=== PATIENT | male | born 1940 | race Hispanic/Latino ===

== ENCOUNTER → 2017-07-23 | Outpatient (CLI) | payer MEDICARE ==
[~2017-07-23] MED LIST: AMLO5TAB2 PO; DOXY100C2 PO; GLIP5TAB11 PO; INSLAN SQ; ROSU40TA28 PO
== END | disposition home or self-care (01) ==
LOC: SHCH 08:22
PROVIDERS: ATTEND Internal Medicine Cardiovascular Disease
DX: I10 Essential (primary) hypertension (principal); Z95.0 Presence of cardiac pacemaker
CPT/HCPCS: 93306

== ENCOUNTER → 2019-10-16 | Outpatient (CLI) | payer MEDICARE ==
[~2019-10-16] MED LIST changes: -AMLO5TAB2 PO; +AMLO5TAB9 PO; +ROSU40TA21 PO; -ROSU40TA28 PO
== END | disposition home or self-care (01) ==
LOC: SHCH 10:40
PROVIDERS: ATTEND Internal Medicine Cardiovascular Disease
DX: I51.7 Cardiomegaly (principal); R01.1 Cardiac murmur, unspecified; I73.9 Peripheral vascular disease, unspecified
CPT/HCPCS: 93306; 93356; 93925

== ENCOUNTER → 2019-11-04 | Outpatient (CLI) | payer MEDICARE | END | disposition home or self-care (01) | LOC: SHCH 09:57 | PROVIDERS: ATTEND Internal Medicine Cardiovascular Disease | DX: R09.89 Other specified symptoms and signs involving the circulatory and respiratory systems (principal) | CPT/HCPCS: 93880 ==

== ENCOUNTER 2022-04-18 12:11 | Emergency (ER) | payer MEDICARE ==
[~2022-04-18] VITALS: Ht 167.6 cm; Wt 67.6 kg
[~2022-04-18 12:11] MED LIST changes: +AEC81 PO; -AMLO5TAB9 PO; +CEFD300C3 PO; +DILT120C92 PO; -DOXY100C2 PO; +FOLIC ACID PO; -GLIP5TAB11 PO; -INSLAN SQ; +INSU100V37 SQ; +LINA5TAB PO; +LOSA25TA41 PO; +REPA1TAB5 PO; -ROSU40TA21 PO; +VITAMIN B12 PO
[2022-04-18] MEDS ORDERED: ACETAMINOPHEN 500 MG TABLET ONE (15:46)
[2022-04-18] MEDS ORDERED: ACETAMINOPHEN 500 MG TABLET PO ONE (16:00)
[2022-04-18 16:39] VITALS: BP 167/73
== END 2022-04-18 16:39 | disposition home or self-care (01) ==
LOC: EDH 12:11
DX: T82.838A Hemorrhage due to vascular prosthetic devices, implants and grafts, initial encounter (principal); E78.00 Pure hypercholesterolemia, unspecified; E11.22 Type 2 diabetes mellitus with diabetic chronic kidney disease; I12.9 Hypertensive chronic kidney disease with stage 1 through stage 4 chronic kidney disease, or unspecified chronic kidney disease; N18.9 Chronic kidney disease, unspecified; Z79.4 Long term (current) use of insulin; Z98.890 Other specified postprocedural states; Z88.0 Allergy status to penicillin; Z79.82 Long term (current) use of aspirin; Z79.899 Other long term (current) drug therapy

== ENCOUNTER → 2022-07-13 | Outpatient (CLI) | payer MEDICARE ==
[~2022-07-13] VITALS: Ht 162.6 cm; Wt 65.8 kg
[2022-07-13 11:00] LABS: HEMATOCRIT 35.7 % (42-54); MEAN CORPUSCULAR HEMOGLOBIN 31.4 pg (27.0-33.0); MEAN CORPUSCULAR HGB CONC 31.7 g/dL (32.0-36.0); MEAN CORPUSCULAR VOLUME 99.2 fL (79-99); PLATELET COUNT (AUTO) 201 K/uL (130-400); RED CELL DISTRIBUTION WIDTH 20.2 % (11.0-15.5); WHITE BLOOD COUNT (AUTO) 7.5 K/uL (4.8-10.8)
[2022-07-13 11:14] LABS: POTASSIUM 4.2 mmol/L (3.5-5.1)
[2022-07-13 11:21] VITALS: BP 139/57
[2022-07-13 11:29] LABS: INR 1.01 (0.85-1.15)
[2022-07-13 11:30] LABS: PARTIAL THROMBOPLASTIN TIME 29.8 SEC (26.3-35.5)
== END | disposition home or self-care (01) ==
LOC: DAH 10:00 → EDSTATUS 07-16 12:15
PROVIDERS: ATTEND Thoracic Surgery (Cardiothoracic Vascular Surgery)
DX: Z01.818 Encounter for other preprocedural examination (principal); N18.6 End stage renal disease; U07.1 COVID-19; Z79.01 Long term (current) use of anticoagulants; Z88.0 Allergy status to penicillin
CPT/HCPCS: 71045; 87426; 80048; 85027; 85610; 85730; 86850; 86900; 86901; 36415; 93005; A6260

== ENCOUNTER 2022-07-30 07:00 | Day surgery (SDC) | payer MEDICARE ==
[2022-07-27 09:37] LABS: MEAN CORPUSCULAR HGB CONC 30.2 g/dL (32.0-36.0); MEAN CORPUSCULAR VOLUME 102.5 fL (79-99); PLATELET COUNT (AUTO) 170 K/uL (130-400); RED CELL DISTRIBUTION WIDTH 19.1 % (11.0-15.5); WHITE BLOOD COUNT (AUTO) 7.5 K/uL (4.8-10.8)
[2022-07-27 09:50] LABS: INR 1.04 (0.85-1.15); PROTHROMBIN TIME 11.3 SEC (9.6-11.6)
[2022-07-27 09:51] LABS: PARTIAL THROMBOPLASTIN TIME 31.1 SEC (26.3-35.5)
[2022-07-27 09:52] LABS: CREATININE 6.4 mg/dL (0.5-1.5); POTASSIUM 4.4 mmol/L (3.5-5.1)
[2022-07-27 10:33] VITALS: BP 154/68
[~2022-07-30] VITALS: Ht 167.6 cm; Wt 66.7 kg
[2022-07-30] VITALS (17 sets, daily range): BP systolic 165–189; BP diastolic 70–90
[~2022-07-30 07:00] MED LIST changes: -AEC81 PO; -CEFD300C3 PO; +CHOL2000 PO; -REPA1TAB5 PO; +ROSU20TA31 PO
[2022-07-30] MEDS ORDERED: 0.9% NACL 500ML IV.SOLN 500 ML IV ONE (07:56)
[2022-07-30] MEDS ORDERED: PROPOFOL 10 MG/ML 20ML VIAL IV ONE (08:45)
[2022-07-30] MEDS ORDERED: LIDOCAINE PF 100MG/5ML (2%) SYRINGE 5ML ONE (08:45)
[2022-07-30] MEDS ORDERED: SUCCINYLCHOLINE CHLORIDE 20 MG/ML 10 ML VIAL ONE (08:45)
[2022-07-30] MEDS ORDERED: DEXAMETHASONE SOD PHOSPHATE 10MG/ML 1ML VIAL ONE (08:45)
[2022-07-30] MEDS ORDERED: FENTANYL CITRATE PF 50 MCG/1 ML 2ML VIAL ONE (08:46)
[2022-07-30] MEDS ORDERED: NEOSTIGMINE 5MG/5ML SYR IV ONE (08:46)
[2022-07-30] MEDS ORDERED: ONDANSETRON 4MG INJ ONE (08:46)
[2022-07-30] MEDS ORDERED: ROCURONIUM 10MG/1ML SYR 10 MG/ML ML ONE (08:46)
[2022-07-30] MEDS ORDERED: MIDAZOLAM HCL 1 MG/ML 2ML VIAL ONE (08:46)
[2022-07-30 09:08] LABS: CREATININE 7.3 mg/dL (0.5-1.5); POTASSIUM 4.4 mmol/L (3.5-5.1)
[2022-07-30] MEDS ORDERED: ALBUMIN (HUMAN) 5% 250 ML IV ONE (10:00)
[2022-07-30] MEDS ORDERED: ETOMIDATE 20MG VIAL ONE (10:05)
[2022-07-30] MEDS ORDERED: CEFAZOLIN SODIUM 1 GM VIAL ONE (10:06)
[2022-07-30] MEDS ORDERED: LIDOCAINE HCL 1% MDV 50ML VIAL ONE (10:07)
[2022-07-30] MEDS ORDERED: BUPIVACAINE/PF 0.25% 10ML VIAL IJ ONE ×2 (10:07→11:02)
[2022-07-30] MEDS ORDERED: CLINDAMYCIN 900MG/6ML INJ IJ ONE (10:49)
[2022-07-30] MEDS ORDERED: LIDOCAINE HCL 1% 10 ML VIAL MISC ONE (11:01)
[2022-07-30] MEDS ORDERED: CLINDAMYCIN IVPB 900MG/50ML 50 ML IV ONE (11:02)
[2022-07-30] MEDS ORDERED: EPHEDRINE SULFATE 50 MG/ML AMPULE ONE (11:06)
[2022-07-30] MEDS ORDERED: SUGAMMADEX SODIUM 200 MG/2 ML VIAL IV ONE (11:36)
[2022-07-30] MEDS ORDERED: HEPARIN 10,000 UNIT/10ML (1,000 UNIT/ML) VIAL ONE (12:28)
[2022-07-30] MEDS ORDERED: PROTAMINE SULFATE 10 MG/ML 5 ML VIAL ONE (12:28)
[2022-08-02] MEDS ORDERED: REPA1TAB5 PO (18:49)
[2022-08-02] MEDS ORDERED: SEVE800T7 PO (18:49)
[2022-08-02] MEDS ORDERED: AEC81 PO (18:49)
[2022-08-02] MEDS ORDERED: LINA5TAB PO (18:49)
[2022-08-06] MEDS ORDERED: EMLA30C TP (13:38)
[2022-08-06] MEDS ORDERED: DOXY100C5 PO (13:38)
== END 2022-07-30 14:35 | disposition home or self-care (01) ==
LOC: DAH 07:00
PROVIDERS: ATTEND Thoracic Surgery (Cardiothoracic Vascular Surgery)
DX: E11.22 Type 2 diabetes mellitus with diabetic chronic kidney disease (principal); Z20.822 Contact with and (suspected) exposure to COVID-19; I12.0 Hypertensive chronic kidney disease with stage 5 chronic kidney disease or end stage renal disease; M79.89 Other specified soft tissue disorders; N18.6 End stage renal disease; I87.1 Compression of vein; Z79.899 Other long term (current) drug therapy; Z88.0 Allergy status to penicillin; Z99.2 Dependence on renal dialysis
CPT/HCPCS: 80048 ×2; 85027; 85610; 85730; 86850 ×2; 86900 ×2; 86901 ×2; 87426; 36415 ×2; 93005; 37607; 36830; 82948 ×2; A6260; A4663; A6207; J7030; A4452; P9045; J7040; J3010; J0690; J1100; J2710; J0330; J2001; J2720; J3490 ×7; J1644 ×2; J2250; J2704; J2405; G0168; A4649 ×2; C1713 ×2; C1768; A4215; A4223; A4222; A4221

== ENCOUNTER → 2022-10-10 | Outpatient (CLI) | payer MEDICARE ==
[~2022-10-10] MED LIST changes: +AEC81 PO; -CHOL2000 PO; +DILT120C78 PO; -DILT120C92 PO; +DOXY100C5 PO; +EMLA30C TP; -INSU100V37 SQ; -LINA5TAB PO; -LOSA25TA41 PO; +SEVE800T7 PO; -VITAMIN B12 PO
== END | disposition home or self-care (01) ==
LOC: LAB 14:27
PROVIDERS: ATTEND Physician Assistant
DX: I48.0 Paroxysmal atrial fibrillation (principal); I77.0 Arteriovenous fistula, acquired; I87.1 Compression of vein
CPT/HCPCS: 36415; 83735; 83880

== ENCOUNTER → 2022-11-16 | Outpatient (CLI) | payer MEDICARE ==
[~2022-11-16] MED LIST changes: -ROSU20TA31 PO; +ROSU20TA73 PO
== END | disposition home or self-care (01) ==
LOC: SHCH 11:12
PROVIDERS: ATTEND Internal Medicine Cardiovascular Disease
DX: I08.3 Combined rheumatic disorders of mitral, aortic and tricuspid valves (principal); I27.20 Pulmonary hypertension, unspecified; I11.9 Hypertensive heart disease without heart failure; E78.5 Hyperlipidemia, unspecified; E11.9 Type 2 diabetes mellitus without complications; Z95.0 Presence of cardiac pacemaker
CPT/HCPCS: 93306

== ENCOUNTER → 2022-11-19 | Outpatient (CLI) | payer MEDICARE ==
[~2022-11-19] MED LIST changes: +REGADENOSON 0.4 MG/5 ML PF SYG IVP ONE
== END | disposition home or self-care (01) ==
LOC: SHCH 08:08
PROVIDERS: ATTEND Internal Medicine Cardiovascular Disease
DX: I11.9 Hypertensive heart disease without heart failure (principal); R06.02 Shortness of breath; I47.1 Supraventricular tachycardia; E11.9 Type 2 diabetes mellitus without complications; E78.5 Hyperlipidemia, unspecified; Z95.0 Presence of cardiac pacemaker; Z79.4 Long term (current) use of insulin; Z79.82 Long term (current) use of aspirin; Z79.02 Long term (current) use of antithrombotics/antiplatelets; Z79.899 Other long term (current) drug therapy
CPT/HCPCS: 78452; 96374; 93017; J2785; A9500 ×2